=== PATIENT | female | born 1955 | race Caucasian/White ===

== ENCOUNTER 2016-12-03 21:36 | Inpatient (IN) | payer BC ==
[~2016-12-03] VITALS: Ht 149.8 cm; Wt 46.4 kg
[~2016-12-03 21:36] MED LIST: ASA; FENOFIBRATE48 MG PO; HYDROCODONE BIT1 T11 PO; LIPITOR80 MG PO; METOPROLOL SR25 MG; MOTRIN800 MG PO; VICODIN 5/500 505 MG PO; VITAMIN B12500 MC1 MM; XANAX0.5 MG
[2016-12-03 21:55] VITALS: BP 126/64
[2016-12-03 22:15] VITALS: BP 115/65
[2016-12-03 22:29] LABS: BASO % 0.2 % (0.0-1.0); HEMATOCRIT 36.5 % (37.0-47.0); HEMOGLOBIN 12.5 g/dl (12.0-16.0); IG # 0.1 10*3/uL (0.0-0.1); LYMPH # 1.1 10*3/uL (1.3-4.4); LYMPH % 9.1 % (27.0-41.0); MEAN CELL VOLUME 89.2 fl (81.0-99.0); MEAN CORPUSCULAR HGB 30.6 pg (27.0-31.0); MEAN CORPUSCULAR HGB CONC 34.2 g/dl (33.0-37.0); MEAN PLATELET VOLUME 9.3 fl (9.6-12.3); MONO # 0.9 10*3/uL (0.1-1.0); MONO % 7.2 % (3.0-9.0); NEUT # 9.8 10*3/uL (2.3-7.9); PLATELET COUNT AUTOMATED 511 10*3/uL (130-400); RED BLOOD COUNT 4.09 10*6/uL (4.10-5.10); RED CELL DISTRI WIDTH 12.7 % (0-14.5); WHITE BLOOD COUNT 11.8 10*3/uL (4.8-10.8)
[2016-12-03 22:45] VITALS: BP 121/55
[2016-12-03 22:49] LABS: BUN 9 mg/dl (7-24); CARBON DIOXIDE 29 mmol/L (21-32); CHLORIDE 94 mmol/L (98-107); EST GLOM FILT AFRICAN AMERICAN > 60 ml/min; GLUCOSE 96 mg/dL (65-99); POTASSIUM 3.6 mmol/L (3.5-5.1); SODIUM 134 mmol/L (136-145)
[2016-12-03 22:50] LABS: TROPONIN I < 0.015 ng/ml (<0.045)
[2016-12-03 23:15] VITALS: BP 112/65
[2016-12-03] MEDS ORDERED: APAP PO (23:37)
[2016-12-03] MEDS ORDERED: BUTALBITAL PO (23:37)
[2016-12-03] MEDS ORDERED: CLARITIN-D 12 H1 TAB PO (23:38)
[2016-12-03] MEDS ORDERED: FEOSOL325 MG PO (23:39)
[2016-12-03] MEDS ORDERED: PROVENTIL0.09 MG/A1 INH (23:41)
[2016-12-03] MEDS ORDERED: NASONEX0.05 MG/AC NAS (23:41)
[2016-12-03] MEDS ORDERED: SYNTHROID25 MCG PO (23:42)
[2016-12-03] MEDS ORDERED: TRIAMCINOLONE AC0.1% T (23:43)
[2016-12-03 23:52] VITALS: BP 113/55
[2016-12-04] VITALS (7 sets, daily range): BP systolic 100–128; BP diastolic 46–63
[2016-12-04 00:02] LABS: BILIRUBIN NEGATIVE (NEGATIVE); BLOOD 2+ (NEGATIVE); CLARITY SL CLOUDY (CLEAR); COLOR YELLOW (YELLOW); GLUCOSE NEGATIVE (NEGATIVE); KETONE NEGATIVE (NEGATIVE); LEUKO ESTERASE NEGATIVE (NEGATIVE); NITRITE NEGATIVE (NEGATIVE); PROTEIN TRACE (NEGATIVE)
[2016-12-04 00:57] LABS: MUCOUS TRACE; URINE REFLEX COMMENT YES (NO)
[2016-12-04 06:29] LABS: HEMATOCRIT 33.5 % (37.0-47.0); HEMOGLOBIN 11.2 g/dl (12.0-16.0); MEAN CELL VOLUME 90.5 fl (81.0-99.0); MEAN CORPUSCULAR HGB 30.3 pg (27.0-31.0); MEAN CORPUSCULAR HGB CONC 33.4 g/dl (33.0-37.0); MEAN PLATELET VOLUME 9.2 fl (9.6-12.3); PLATELET COUNT AUTOMATED 512 10*3/uL (130-400); RED CELL DISTRI WIDTH 12.7 % (0-14.5); WHITE BLOOD COUNT 11.8 10*3/uL (4.8-10.8)
[2016-12-04 06:45] LABS: CKMB 1.6 ng/ml (0.5-3.6); CPK 180 U/L (26-192)
[2016-12-04 06:47] LABS: TROPONIN I < 0.015 ng/ml (<0.045)
[2016-12-04 06:47] LABS: LYMPHOCYTE # 0.6 10*3/uL (1.3-4.4); MONOCYTE # 0.4 10*3/uL (0.1-1.0); NEUTROPHIL # 10.9 10*3/uL (2.3-7.9); NEUTROPHILS 92 % (47-73); PLATELET SUFFICIENCY HIGH (NORMAL); TOTAL CELLS COUNTED 100 #CELLS
[2016-12-04 06:52] LABS: BUN 6 mg/dl (7-24); CARBON DIOXIDE 29 mmol/L (21-32); CHLORIDE 97 mmol/L (98-107); EST GLOM FILT AFRICAN AMERICAN > 60 ml/min; GLUCOSE 130 mg/dL (65-99); POTASSIUM 3.2 mmol/L (3.5-5.1); SODIUM 137 mmol/L (136-145)
[2016-12-04 07:02] LABS: FREE T4 1.42 ng/dl (0.76-1.46)
[2016-12-04 07:45] LABS: INTERNATIONAL NORM RATIO 0.9 (2.0-3.5)
[2016-12-04 12:41] LABS: CKMB 1.3 ng/ml (0.5-3.6); CPK 176 U/L (26-192)
[2016-12-04 12:46] LABS: TROPONIN I < 0.015 ng/ml (<0.045)
[2016-12-04 18:23] LABS: CKMB 2.1 ng/ml (0.5-3.6); CPK 215 U/L (26-192)
[2016-12-04 18:26] LABS: TROPONIN I < 0.015 ng/ml (<0.045)
[2016-12-05] VITALS: BP 117/47
[2016-12-05 06:57] LABS: HEMATOCRIT 31.9 % (37.0-47.0); HEMOGLOBIN 10.4 g/dl (12.0-16.0); MEAN CELL VOLUME 92.7 fl (81.0-99.0); MEAN CORPUSCULAR HGB 30.2 pg (27.0-31.0); MEAN CORPUSCULAR HGB CONC 32.6 g/dl (33.0-37.0); MEAN PLATELET VOLUME 9.2 fl (9.6-12.3); PLATELET COUNT AUTOMATED 603 10*3/uL (130-400); RED BLOOD COUNT 3.44 10*6/uL (4.10-5.10); RED CELL DISTRI WIDTH 13.2 % (0-14.5); WHITE BLOOD COUNT 15.8 10*3/uL (4.8-10.8)
[2016-12-05 07:24] LABS: LYMPHOCYTE # 0.8 10*3/uL (1.3-4.4); MONOCYTE # 0.8 10*3/uL (0.1-1.0); MYELOCYTES 2 % (0-0); NEUTROPHIL # 13.9 10*3/uL (2.3-7.9); NEUTROPHILS 88 % (47-73); PLATELET SUFFICIENCY HIGH (NORMAL); TOTAL CELLS COUNTED 100 #CELLS
[2016-12-05 07:34] LABS: CARBON DIOXIDE 27 mmol/L (21-32); CHLORIDE 104 mmol/L (98-107); GLUCOSE 125 mg/dL (65-99); POTASSIUM 3.4 mmol/L (3.5-5.1); SODIUM 140 mmol/L (136-145)
[2016-12-05 07:37] LABS: BUN 4 mg/dl (7-24); EST GLOM FILT AFRICAN AMERICAN > 60 ml/min
[2016-12-05 08:00] VITALS: BP 116/55
[2016-12-05 12:00] VITALS: BP 128/63
[2016-12-05 16:00] VITALS: BP 112/54
[2016-12-05 20:00] VITALS: BP 130/53
[2016-12-06] VITALS: BP 127/62
[2016-12-06 08:00] VITALS: BP 132/58
[2016-12-06] MEDS ORDERED: PREDNISONE10 MG PO (11:12)
[2016-12-06] MEDS ORDERED: METOPROLOL SUCC25 M2 PO (11:12)
[2016-12-06] MEDS ORDERED: ASPIRIN325 M2 PO (11:12)
[2016-12-06] MEDS ORDERED: LEVAQUIN750 M1 PO (11:12)
== END 2016-12-06 11:36 | disposition home or self-care (01) | DRG 871 ==
LOC: ED 21:36 → 4E 23:27 → EDHOLD 23:27 → 4E 23:54
PROVIDERS: Hospitalist; Internal Medicine; Student in an Organized Health Care Education/Training Program
DX: A41.9 Sepsis, unspecified organism (principal); J18.9 Pneumonia, unspecified organism; E87.6 Hypokalemia; E78.2 Mixed hyperlipidemia; E03.9 Hypothyroidism, unspecified; F41.9 Anxiety disorder, unspecified; M19.90 Unspecified osteoarthritis, unspecified site; E78.1 Pure hyperglyceridemia; I25.119 Atherosclerotic heart disease of native coronary artery with unspecified angina pectoris; Z87.891 Personal history of nicotine dependence; Z98.42 Cataract extraction status, left eye; Z98.41 Cataract extraction status, right eye; Z90.710 Acquired absence of both cervix and uterus; Z98.891 History of uterine scar from previous surgery; Z80.42 Family history of malignant neoplasm of prostate; Z88.0 Allergy status to penicillin; Z91.040 Latex allergy status; Z88.8 Allergy status to other drugs, medicaments and biological substances; Z79.899 Other long term (current) drug therapy

== ENCOUNTER 2018-02-11 19:47 | Inpatient (IN) | payer BC ==
[~2018-02-11] VITALS: Ht 149.9 cm; Wt 51.7 kg
[~2018-02-11 19:47] MED LIST changes: +ASPIRIN325 M2 PO; +CLARITIN-D 121 EACH PO; +FEOSOL325 MG PO; +Fioricet 325 MG1 TAB PO; +LEVAQUIN750 M1 PO; +LIPITOR40 MG PO; -LIPITOR80 MG PO; +METOPROLOL SUCC25 M2 PO; +NASONEB NASAL1 EACH INH; +PREDNISONE10 MG PO; +PROVENTIL0.09 MG/A1 INH; +SYNTHROID25 MCG PO; +TRIAMCINOLONE AC0.1% T; -XANAX0.5 MG; +XANAX0.5 MG PO
[2018-02-11 19:49] VITALS: BP 115/63
[2018-02-11] MEDS ORDERED: B-12500 MC1 PO (20:03)
[2018-02-11] MEDS ORDERED: SUNMARK OMEPRAZ20 M1 PO (20:03)
[2018-02-11 20:20] VITALS: BP 111/68
[2018-02-11 20:50] VITALS: BP 115/67
[2018-02-11 21:20] VITALS: BP 118/63
[2018-02-11 21:50] VITALS: BP 113/64
[2018-02-11 22:04] LABS: BASO % 0.2 % (0.0-1.0); EOS # 0.1 10*3/uL (0.0-0.4); EOS % 0.9 % (1.0-4.0); HEMATOCRIT 37.6 % (37.0-47.0); HEMOGLOBIN 12.2 g/dl (12.0-16.0); LYMPH # 1.3 10*3/uL (1.3-4.4); MEAN CELL VOLUME 96.4 fl (81.0-99.0); MEAN CORPUSCULAR HGB 31.3 pg (27.0-31.0); MEAN CORPUSCULAR HGB CONC 32.4 g/dl (33.0-37.0); MEAN PLATELET VOLUME 9.3 fl (9.6-12.3); MONO # 0.6 10*3/uL (0.1-1.0); MONO % 4.8 % (3.0-9.0); NEUT # 9.8 10*3/uL (2.3-7.9); NEUT % 82.8 % (47.0-73.0); PLATELET COUNT AUTOMATED 385 10*3/uL (130-400); RED CELL DISTRI WIDTH 13.1 % (0-14.5); WHITE BLOOD COUNT 11.8 10*3/uL (4.8-10.8)
[2018-02-11 22:20] VITALS: BP 109/54
[2018-02-11 22:20] LABS: ALKALINE PHOSPHATASE 115 U/L (45-117); BUN 5 mg/dl (7-24); CHLORIDE 105 mmol/L (98-107); CREATININE 0.67 mg/dL (0.55-1.02); POTASSIUM 3.8 mmol/L (3.5-5.1); SGOT/AST 17 IU/L (3-35); SGPT/ALT 15 U/L (12-78); SODIUM 137 mmol/L (136-145); TOTAL PROTEIN 6.7 gm/dL (6.4-8.2)
[2018-02-11] MEDS ORDERED: LOPRESSOR25 MG PO (22:34)
[2018-02-11] MEDS ORDERED: FENOGLIDE40 MG PO (22:35)
[2018-02-11] MEDS ORDERED: Synthroid,Levo25 MCG PO (22:37)
[2018-02-11] MEDS ORDERED: Fioricet 325 MG1 TAB PO (22:38)
[2018-02-12] VITALS: BP 109/54
[2018-02-12] MEDS ORDERED: MOMETASONE FURO17 GM INH (00:10)
[2018-02-12 07:34] LABS: BASO % 0.1 % (0.0-1.0); EOS % 0.1 % (1.0-4.0); HEMATOCRIT 36.7 % (37.0-47.0); HEMOGLOBIN 11.4 g/dl (12.0-16.0); LYMPH # 1.1 10*3/uL (1.3-4.4); LYMPH % 6.8 % (27.0-41.0); MEAN CELL VOLUME 98.7 fl (81.0-99.0); MEAN CORPUSCULAR HGB 30.6 pg (27.0-31.0); MEAN CORPUSCULAR HGB CONC 31.1 g/dl (33.0-37.0); MEAN PLATELET VOLUME 9.4 fl (9.6-12.3); MONO % 6.2 % (3.0-9.0); NEUT # 14.2 10*3/uL (2.3-7.9); NEUT % 86.3 % (47.0-73.0); PLATELET COUNT AUTOMATED 372 10*3/uL (130-400); RED BLOOD COUNT 3.72 10*6/uL (4.10-5.10); RED CELL DISTRI WIDTH 12.9 % (0-14.5); WHITE BLOOD COUNT 16.5 10*3/uL (4.8-10.8)
[2018-02-12 07:53] LABS: ACT PARTIAL THROMBO TIME 23.9 SECONDS (20.8-31.5); INTERNATIONAL NORM RATIO 0.9 (2.0-3.5)
[2018-02-12 08:00] VITALS: BP 102/42
[2018-02-12 08:01] LABS: ALBUMIN 3.6 gm/dl (3.1-4.5); ALKALINE PHOSPHATASE 114 U/L (45-117); BUN 7 mg/dl (7-24); CHLORIDE 106 mmol/L (98-107); CHOLESTEROL 155 mg/dL (<200); CREATININE 0.59 mg/dL (0.55-1.02); FREE T4 0.98 ng/dl (0.76-1.46); HDL CHOLESTEROL 52 mg/dl (40-60); LDL CHOLESTEROL 82 mg/dL (9-159); PHOSPHOROUS 3.3 mg/dL (2.5-4.9); POTASSIUM 3.6 mmol/L (3.5-5.1); SGOT/AST 17 IU/L (3-35); SGPT/ALT 15 U/L (12-78); SODIUM 139 mmol/L (136-145); TOTAL PROTEIN 6.6 gm/dL (6.4-8.2); TRIGLYCERIDES 106 mg/dl (<150); VLDL CHOLESTEROL 21 mg/dL (6-40)
[2018-02-12 08:40] LABS: VITAMIN D, 25-HYDROXY 7.4 ng/mL (30-100)
[2018-02-12 12:00] VITALS: BP 118/53
[2018-02-12 16:00] VITALS: BP 114/56
[2018-02-12 16:18] LABS: BILIRUBIN NEGATIVE (NEGATIVE); BLOOD 2+ (NEGATIVE); CLARITY SL CLOUDY (CLEAR); COLOR YELLOW (YELLOW); GLUCOSE NEGATIVE (NEGATIVE); KETONE NEGATIVE (NEGATIVE); LEUKO ESTERASE NEGATIVE (NEGATIVE); NITRITE NEGATIVE (NEGATIVE); PH 5.5 (5.0-9.0); SPECIFIC GRAVITY >= 1.030 (1.005-1.030); UROBILINOGEN 0.2 E.U./dl (0.2-1.0)
[2018-02-12 16:29] LABS: BACTERIA 1+
[2018-02-12 16:30] LABS: MUCOUS 1+
[2018-02-12 16:31] LABS: RBC 16-20 rbc/hpf (0-2)
== END 2018-02-12 19:03 | disposition short-term general hospital (02) | DRG 536 ==
LOC: ED 19:47 → EDHOLD 21:23 → 4E 21:23 → EDHOLD 21:40 → 4E 21:55
PROVIDERS: Orthopaedic Surgery; Student in an Organized Health Care Education/Training Program
DX: S72.001A Fracture of unspecified part of neck of right femur, initial encounter for closed fracture (principal); E83.41 Hypermagnesemia; D72.819 Decreased white blood cell count, unspecified; E03.9 Hypothyroidism, unspecified; F41.9 Anxiety disorder, unspecified; M19.90 Unspecified osteoarthritis, unspecified site; E78.2 Mixed hyperlipidemia; E55.9 Vitamin D deficiency, unspecified; W01.0XXA Fall on same level from slipping, tripping and stumbling without subsequent striking against object, initial encounter; E83.51 Hypocalcemia; I25.10 Atherosclerotic heart disease of native coronary artery without angina pectoris; F17.210 Nicotine dependence, cigarettes, uncomplicated; Z87.01 Personal history of pneumonia (recurrent); Z98.41 Cataract extraction status, right eye; Z98.42 Cataract extraction status, left eye; Z90.710 Acquired absence of both cervix and uterus; Z98.891 History of uterine scar from previous surgery; Z80.42 Family history of malignant neoplasm of prostate; Z88.0 Allergy status to penicillin; Z88.8 Allergy status to other drugs, medicaments and biological substances; Z91.040 Latex allergy status; Z79.82 Long term (current) use of aspirin; Z79.899 Other long term (current) drug therapy; Z71.6 Tobacco abuse counseling; Y93.89 Activity, other specified; Y92.89 Other specified places as the place of occurrence of the external cause; Y99.8 Other external cause status

== ENCOUNTER 2020-12-02 18:57 | Emergency (ER) | payer MEDICARE, OTHER ==
[~2020-12-02 18:57] MED LIST changes: +B-12500 MC1 PO; +FENOGLIDE40 MG PO; +LOPRESSOR25 MG PO; +MOMETASONE FURO17 GM INH; +SUNMARK OMEPRAZ20 M1 PO; +Synthroid,Levo25 MCG PO
[2020-12-02 19:12] VITALS: BP 121/44
== END 2020-12-02 21:10 | disposition home or self-care (01) ==
LOC: ED 18:57
DX: S90.01XA Contusion of right ankle, initial encounter (principal); S90.111A Contusion of right great toe without damage to nail, initial encounter; S80.01XA Contusion of right knee, initial encounter; Z88.8 Allergy status to other drugs, medicaments and biological substances; Z91.040 Latex allergy status; Z88.0 Allergy status to penicillin; Z79.899 Other long term (current) drug therapy; Z79.82 Long term (current) use of aspirin; Z90.711 Acquired absence of uterus with remaining cervical stump; Z95.818 Presence of other cardiac implants and grafts; W19.XXXA Unspecified fall, initial encounter; Y93.89 Activity, other specified; Y92.89 Other specified places as the place of occurrence of the external cause; Y99.8 Other external cause status